=== PATIENT | male | born 1965 | race Caucasian/White ===

== ENCOUNTER 2020-07-14 08:02 | Day surgery (SDC) | payer OTHER ==
[2020-07-14] MEDS ORDERED: LACTATED RINGERS 1,000 ML IV ONE ×2 (08:43→09:53)
[2020-07-14] MEDS ORDERED: MIDAZOLAM 2 MG/2 ML VIAL ONE ×2 (09:16→09:36)
[2020-07-14] MEDS ORDERED: fentaNYL 250 MCG/5 ML VIAL ONE (09:16)
[2020-07-14 10:16] VITALS: BP 119/82
== END 2020-07-14 08:03 | disposition home or self-care (01) ==
LOC: SDS 08:02
PROVIDERS: ATTEND Surgery
DX: Z12.11 Encounter for screening for malignant neoplasm of colon (principal); K64.8 Other hemorrhoids
CPT/HCPCS: 45378; J3010; J7120